=== PATIENT | male | born 1940 | race Hispanic/Latino ===

== ENCOUNTER 2017-04-07 06:11 | Day surgery (SDC) | payer MEDICARE ==
[2017-04-04 08:40] VITALS: BMI 33.9
[2017-04-07 06:50] VITALS: RESP 18
[2017-04-07] MEDS ORDERED: Lidocaine 2% Inj (20ml) ONE (07:13)
[2017-04-07] MEDS ORDERED: Midazolam 2 MG/2 ML VIAL ONE (07:14)
[2017-04-07] MEDS ORDERED: Sodium Chloride 0.45% 1,000 ML IV SCH (08:15)
--- NOTE | 2017-04-07 08:25 | CARD ---
APPROVED REPORT Procedure(s) performed: Left Heart Catheterization Left Ventriculogram Selective Right and Left Coronary Angiography Right femoral arteriography Angeioseal deployment HISTORY The patient is a 76 year-old male with a history of : diabetes mellitus with no treatment , dyslipidemia . INDICATION The indication(s) include : positive stress test, dyspnea. CASE TECHNIQUE The patient was brought electively to the Cardiac Catheterization Laboratory in a fasting state and was prepped and draped in a sterile manner. The right femoral groin was infiltrated with 2% Lidocaine subcutaneous anesthesia. A 6F sheath was inserted into the right femoral artery without difficulty. Coronary angiography was performed using coronary diagnostic catheters. The left coronary system was accessed and visualized with a JL4 catheter. The right coronary system was accessed and visualized with a JR4 catheter. The left ventricle was accessed and visualized with a JR4 catheter. Left ventricular/Aortic Valve gradient assessed on pullback. Left ventriculogram was performed in [place] projection. Pre-demployment femoral angiogram was performed and revealed no evidence if significant disease and appropriate level of arterial puncture. Closure device was deployed with a 6F Fr Angioseal without any complications. The patient tolerated the procedure well and there were no complications associated with the procedure. Vessel Analysis The patient's coronary anatomy is right dominant. The left main coronary artery is a large size vessel free of disease. The left main bifurcates to the left anterior descending and circumflex. The left anterior descending artery is a large size vessel free of disease. The first diagonal branch is a medium size vessel free of disease. The second diagonal branch is a medium size vessel free of disease. The circumflex artery is a medium size vessel free of disease. The first obtuse marginal branch is a medium size vessel free of disease. The right coronary artery is a large size vessel . There is a 40% stenosis in the mid segment. The right posterior descending artery is a medium size vessel free of disease. The right posterolateral branch is a medium size vessel free of disease. Left Ventricle The left ventricle is normal in size with normal contractility. The left ventricular ejection fraction is estimated to be 65%. The left ventricular end diastolic pressure is 12 mmHg. There was no gradient across the aortic valve upon pullback. 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 Normal left coronary system. Normal LV systolic function. Recommendations Aggressive Medical Therapy Weight Loss Reduction Program CC: Juan Diego Montoya MD
[2017-04-07 08:49] VITALS: TEMP 97.7
[2017-04-07 11:13] VITALS: BP 112/72; PULSE 66; O2SAT 98
== END 2017-04-07 12:10 | disposition home or self-care (01) ==
LOC: CATH 06:11
PROVIDERS: ATTEND Internal Medicine Cardiovascular Disease
DX: I25.10 Atherosclerotic heart disease of native coronary artery without angina pectoris (principal); E11.9 Type 2 diabetes mellitus without complications; E78.5 Hyperlipidemia, unspecified
CPT/HCPCS: 36415; 86850; 86900; 93458; 99152; C1760; C1769 ×2; C2629; J1644; J2250; J3010; J7030; J7040; Q9967